=== PATIENT | male | born 1985 | race Caucasian/White ===

== ENCOUNTER 2022-11-21 14:24 | Emergency (ER) | payer SELFPAY ==
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
--- NOTE | 2022-11-21 15:04 | ER ---
Nurse's Notes [facility] Name: Jose Ortiz Age: 36 yrs Sex: Male : 1985 Arrival Date: 11/21/2022 Time: 14:26 Bed Waiting Private MD: Diagnosis: Dental root caries Presentation: 11/21 14:55 Chief complaint: Patient states: he started having pain in his upper front teeth last ap3 night, and feels like he has drainage coming from an abscess in one of his teeth. patient states he can't get into a dentist and the pain is 8/10. Coronavirus screen: At this time, the client does not indicate any symptoms associated with coronavirus-19. Ebola Screen: No symptoms or risks identified at this time. Initial Sepsis Screen: Does the patient meet any 2 criteria? No. Patient's initial sepsis screen is negative. Does the patient have a suspected source of infection? Yes: Other: teeth. Risk Assessment: Do you want to hurt yourself or someone else? Patient reports no desire to harm self or others. Onset of symptoms was November 20, 2022. 14:55 Method Of Arrival: Ambulatory ap3 14:55 Acuity: YAN 4 ap3 Triage Assessment: 14:58 General: Appears uncomfortable, Behavior is calm, cooperative, appropriate for age. ap3 Pain: Complains of pain in frenulum and gums Pain began gradually, 1 day ago. EENT: Reports pain in frenulum, gums, upper right cuspid, upper right lateral incisor, upper right central incisor and upper left central incisor. Neuro: Level of Consciousness is awake, alert, obeys commands, Oriented to person, place, time, situation, Gait is steady, Speech is normal. Cardiovascular: Patient's skin is warm and dry. Respiratory: Airway is patent Respiratory effort is even, unlabored, Respiratory pattern is regular, symmetrical. Historical: - Allergies: 14:57 No Known Allergies; ap3 - Home Meds: 14:57 None [Active]; ap3 - PMHx: 14:57 None; ap3 - Immunization history:: Client reports receiving the 2nd dose of the Covid vaccine, Flu vaccine is up to date. - Social history:: Smoking status: Patient reports the use of cigarette tobacco products, smokes one-half pack cigarettes per day. Screenin:58 [facility] ED Fall Risk Assessment (Adult) History of falling in the last 3 months, ap3 including since admission. Abuse screen: Denies threats or abuse. Nutritional screening: No deficits noted. Tuberculosis screening: No symptoms or risk factors identified. Vital Signs: 14:55 BP 128 / 89; Pulse 105; Resp 17; Temp 98.4; Pulse Ox 100% ; Weight 72.57 kg; Height 5 ap3 ft. 9 in. (175.26 cm); Pain 8/10; 14:55 Body Mass Index 23.63 (72.57 kg, 175.26 cm) ap3 ED Course: 14:26 Patient arrived in ED. 4 14:52 Tiffany Mckeon FNP is [facility] 7 14:52 Waldo Vick MD is Attending Physician. 7 14:57 Triage completed. ap3 14:59 Arm band placed on right wrist. ap3 14:59 Patient has correct armband on for positive identification. ap3 15:05 No provider procedures requiring assistance completed. Patient did not have IV access ap3 during this emergency room visit. Administered Medications: No medications were administered Medication: 15:05 VIS not applicable for this client. ap3 Outcome: 15:03 Discharge ordered by . jh7 15:05 Discharged to home ambulatory. ap3 15:05 Condition: good 15:05 Discharge instructions given to patient. ap3 15:05 Patient left the ED. ap3 Signatures: Jessica Moore 4 Mia Osullivan RN RN ap3 Tiffany Mckeon FNP FNP [facility]
[2022-11-21 15:09] VITALS: BP 128/89; TEMP 98.4; O2SAT 100
== END 2022-11-21 15:05 | disposition home or self-care (01) ==
LOC: ER 14:24
DX: K02.7 Dental root caries (principal); F17.210 Nicotine dependence, cigarettes, uncomplicated
CPT/HCPCS: 99281

== ENCOUNTER 2022-12-12 17:17 | Emergency (ER) | payer SELFPAY ==
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
--- NOTE | 2022-12-12 18:01 | ER ---
Nurse's Notes [facility] Name: Jose Ortiz Age: 37 yrs Sex: Male : 1985 Arrival Date: 12/12/2022 Time: 17:19 Bed IW3 Private MD: Diagnosis: Disorder of teeth and supporting structures, unspecified Presentation: 12/12 17:58 Chief complaint: Patient states: Pain to right lateral incisor and right cuspid tooth. jl7 Coronavirus screen: Vaccine status: Patient reports receiving the 2nd dose of the covid vaccine. At this time, the client does not indicate any symptoms associated with coronavirus-19. Ebola Screen: No symptoms or risks identified at this time. Initial Sepsis Screen: Does the patient meet any 2 criteria? No. Patient's initial sepsis screen is negative. Does the patient have a suspected source of infection? No. Patient's initial sepsis screen is negative. Risk Assessment: Do you want to hurt yourself or someone else? Patient reports no desire to harm self or others. Onset of symptoms is unknown. 17:58 Method Of Arrival: Ambulatory [facility] 17:58 Acuity: YAN 4 jl7 Triage Assessment: 17:57 General: Appears in no apparent distress. uncomfortable, Behavior is calm, cooperative, jl7 appropriate for age. Pain: Complains of pain in upper right cuspid and upper right lateral incisor Pain currently is 5 out of 10 on a pain scale. EENT: Reports pain. Historical: - Allergies: 17:59 No Known Allergies; jl7 - Home Meds: 17:59 None [Active]; jl7 - PMHx: 17:59 None; jl7 - PSHx: 17:59 None; jl7 - Immunization history:: Client reports receiving the 2nd dose of the Covid vaccine. - Social history:: Smoking status: Patient reports the use of cigarette tobacco products, smokes one-half pack cigarettes per day. Vital Signs: 17:58 BP 114 / 76; Pulse 92; Resp 17 S; Temp 98.2(TE); Pulse Ox 99% on R/A; Weight 77.11 kg; jl7 Height 5 ft. 9 in. (175.26 cm); Pain 5/10; 17:59 Pain 5/10; jl7 17:58 Body Mass Index 25.10 (77.11 kg, 175.26 cm) jl7 ED Course: 17:19 Patient arrived in ED. am2 17:20 Emre Wolff PA is PHCP. cp 17:20 Josesito Valles DO is Attending Physician. cp 17:59 Triage completed. jl7 17:59 Arm band placed on right wrist. jl7 18:00 Bassam Tejeda DDS is Referral Physician. cp 18:33 No provider procedures requiring assistance completed. Patient did not have IV access jl7 during this emergency room visit. Administered Medications: No medications were administered Outcome: 18:00 Discharge ordered by MD. cp 18:33 Discharged to home ambulatory. jl7 18:33 Condition: stable 18:33 Discharge instructions given to patient, family, Instructed on discharge instructions, follow up and referral plans. medication usage, Demonstrated understanding of instructions, follow-up care, medications, Prescriptions given X 3. 18:33 Patient left the ED. jl7 Signatures: Emre Wolff PA PA cp Leal, Jahala, RN RN jl7 Mia Sierra am2
--- NOTE | 2022-12-12 18:01 | EDPHYS ---
Physician Documentation [facility] Name: Jose Ortiz Age: 37 yrs Sex: Male : 1985 Arrival Date: 12/12/2022 Time: 17:19 Bed IW3 Private MD: ED Physician Josesito Valles HPI: 12/12 17:46 This 37 yrs old Male presents to ER via Unassigned with complaints of Toothache, Ear cp Pain. 17:46 The patient presents with pain. The problem is located in the upper jaw. Onset: The cp symptoms/episode began/occurred gradually, and became worse today. Duration: The symptoms are continuous, and are steadily getting worse. Associated signs and symptoms: Pertinent positives: right ear pain, Pertinent negatives: fever, inability to eat. Severity of symptoms: in the emergency department the symptoms are unchanged, despite home interventions. 17:46 The patient has experienced similar episodes in the past, a few times. cp Historical: - Allergies: 17:59 No Known Allergies; jl7 - Home Meds: 17:59 None [Active]; jl7 - PMHx: 17:59 None; jl7 - PSHx: 17:59 None; jl7 - Immunization history:: Client reports receiving the 2nd dose of the Covid vaccine. - Social history:: Smoking status: Patient reports the use of cigarette tobacco products, smokes one-half pack cigarettes per day. ROS: 17:50 Constitutional: Negative for body aches, chills, fever, poor PO intake. cp 17:50 Eyes: Negative for injury, pain, redness, and discharge. cp 17:50 ENT: Positive for dental pain, ear pain, Negative for drainage from ear(s), sore throat, difficulty swallowing, difficulty handling secretions. 17:50 Respiratory: Negative for cough, shortness of breath, wheezing. 17:50 Abdomen/GI: Negative for abdominal pain, vomiting, diarrhea, constipation. 17:50 Neuro: Negative for altered mental status, dizziness, headache, weakness. 17:50 All other systems are negative. Exam: 17:53 Constitutional: The patient appears in no acute distress, alert, awake, non-toxic, well cp developed, well nourished. 17:53 Head/Face: Normocephalic, atraumatic. cp 17:53 Eyes: Periorbital structures: appear normal, Conjunctiva: normal, no exudate, no injection, Sclera: no appreciated abnormality, Lids and lashes: appear normal, bilaterally. 17:53 ENT: External ear(s): are unremarkable, Ear canal(s): are normal, clear, TM's: dullness, bilaterally, Nose: is normal, Mouth: Lips: moist, Oral mucosa: moist, Gums: anterior upper gum line appears with mild erythema and swelling, small superficial abscess noted, Posterior pharynx: Airway: no evidence of obstruction, patent, swelling, is not appreciated, erythema, is not appreciated, Dental exam: dental caries, that is severe, diffusely, fractured teeth are noted, diffusely, missing teeth, diffusely, pain, that is moderate, specifically in the upper right cuspid (#6) and upper right lateral incisor (#7), Voice: is normal. 17:53 Neck: ROM/movement: is normal, is supple, without pain, no range of motions limitations, Lymph nodes: no appreciated lymphadenopathy. 17:53 Chest/axilla: Inspection: normal. 17:53 Cardiovascular: Rate: normal. 17:53 Respiratory: the patient does not display signs of respiratory distress, Respirations: normal, no use of accessory muscles, no retractions, Breath sounds: are clear throughout, no decreased breath sounds. 17:53 Neuro: Orientation: to person, place \T\ time. Mentation: is normal. Vital Signs: 17:58 BP 114 / 76; Pulse 92; Resp 17 S; Temp 98.2(TE); Pulse Ox 99% on R/A; Weight 77.11 kg; jl7 Height 5 ft. 9 in. (175.26 cm); Pain 5/10; 17:59 Pain 5/10; jl7 17:58 Body Mass Index 25.10 (77.11 kg, 175.26 cm) jl7 MDM: 17:50 Differential diagnosis: dental caries, gingivitis, dental abscess, pericoronitis. cp 18:00 Patient medically screened. cp 18:00 Data reviewed: vital signs, nurses notes. cp 18:00 Consideration of Admission/Observation Escalation of care including cp admission/observation considered. Test considered but Not performed: CT: facial bones. Care significantly affected by the following Social Determinants of Health: Poor access to healthcare and/or lack of insurance. Counseling: I had a detailed discussion with the patient and/or guardian regarding: the historical points, exam findings, and any diagnostic results supporting the discharge/admit diagnosis, the need for outpatient follow up, for definitive care, a dentist, to return to the emergency department if symptoms worsen or persist or if there are any questions or concerns that arise at home. Administered Medications: No medications were administered Disposition: 18:50 Co-signature as Attending Physician, Josesito Valles DO Nohelia was immediately available on-site ms3 in the Emergency Department for consultation in the care of the patient. Disposition Summary: 12/12/22 18:00 Discharge Ordered Location: Home cp Problem: an ongoing problem cp Symptoms: are unchanged cp Condition: Stable cp Diagnosis - Disorder of teeth and supporting structures, unspecified cp Followup: cp - With: Bassam Tejeda DDS - When: 2 - 3 days - Reason: Recheck today's complaints Discharge Instructions: - Discharge Summary Sheet cp - Dental Abscess cp - Dental Pain cp Forms: - Medication Reconciliation Form cp - Thank You Letter cp - Antibiotic Education cp - Prescription Opioid Use cp Prescriptions: - Peridex 0.12 % Mucous Membrane mouthwash - place 15 milliliter by MUCOUS MEMBRANE route 2 times per day after brushing cp teeth, swish in mouth for 30 seconds then spit out; 1 bottle; Refills: 0, Product Selection Permitted - Clindamycin HCl 150 mg Oral Capsule - take 2 capsule by ORAL route every 6 hours for 10 days; 80 capsule; Refills: 0, cp Product Selection Permitted - Diclofenac Sodium 75 mg Oral Tablet Sustained Release - take 1 tablet by ORAL route 2 times per day; 30 tablet; Refills: 0, Product cp Selection Permitted Signatures: Emre Wolff PA PA cp Leal, Jahala, RN RN jl7 Josesito Valles DO DO ms3
[2022-12-12 19:31] VITALS: BP 114/76; TEMP 98.2; O2SAT 99
== END 2022-12-12 18:33 | disposition home or self-care (01) ==
LOC: ER 17:17
DX: K08.89 Other specified disorders of teeth and supporting structures (principal)
CPT/HCPCS: 99282

== ENCOUNTER 2022-12-28 14:36 | Emergency (ER) | payer SELFPAY ==
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
[2022-12-28] MEDS ORDERED: KETOROLAC 30 MG/ML INJ ONE (15:05)
[2022-12-28] MEDS ORDERED: LIDOCAINE 1% MPF 5 ML VIAL ONE (15:05)
--- NOTE | 2022-12-28 16:00 | ER ---
Nurse's Notes [facility] Name: Jose Ortiz Age: 37 yrs Sex: Male : 1985 Arrival Date: 12/28/2022 Time: 14:36 Bed 4 Private MD: Diagnosis: Bitten by dog;Facial lacerations Presentation: 12/28 14:40 Chief complaint: Patient states: attacked by friend's dog to face, arms, and legs. aa5 Bleeding controlled. Coronavirus screen: At this time, the client does not indicate any symptoms associated with coronavirus-19. Ebola Screen: Patient denies travel to an Ebola-affected area in the 21 days before illness onset. Initial Sepsis Screen: Does the patient meet any 2 criteria? No. Patient's initial sepsis screen is negative. Does the patient have a suspected source of infection? No. Patient's initial sepsis screen is negative. Risk Assessment: Do you want to hurt yourself or someone else? Patient reports no desire to harm self or others. Onset of symptoms was December 28, 2022. 14:40 Method Of Arrival: Ambulatory aa5 14:40 Acuity: YAN 3 aa5 Historical: - Allergies: 14:41 No Known Allergies; aa5 - PMHx: 14:41 None; aa5 - PSHx: 14:41 hernia; aa5 - Immunization history:: Last tetanus immunization: unknown. - Social history:: Smoking status: Patient reports the use of cigarette tobacco products, smokes one-half pack cigarettes per day. - Family history:: not pertinent. Screenin:07 [facility] ED Fall Risk Assessment (Adult) History of falling in the last 3 months, kc6 including since admission No falls in past 3 months (0 pts) Confusion or Disorientation No (0 pts) Intoxicated or Sedated No (0 pts) Impaired Gait No (0 pts) Mobility Assist Device Used No (0 pt) Altered Elimination No (0 pt) Score/Fall Risk Level 0 - 2 = Low Risk Oriented to surroundings, Maintained a safe environment, Educated pt \T\ family on fall prevention, incl call for assistance when getting out of bed, Assessed \T\ reinforced patient's understanding of fall precautions, Hourly rounding (assess needs \T\ fall precautionary measures) done. Abuse screen: Denies threats or abuse. Denies injuries from another. Nutritional screening: No deficits noted. Tuberculosis screening: No symptoms or risk factors identified. Assessment: 15:05 General: Appears in no apparent distress. comfortable, Behavior is calm, cooperative, kc6 appropriate for age. Pain: Complains of pain in chin, right cheek Pain does not radiate. Pain began suddenly, Is continuous, Alleviated by nothing. Also complains of no other associated symptoms. Neuro: [place] Agitation-Sedation Scale (RASS): 0 - Alert and Calm Level of Consciousness is awake, alert, obeys commands, Oriented to person, place, time, situation, Appropriate for age. Cardiovascular: Capillary refill < 3 seconds. Respiratory: Airway is patent Trachea midline Respiratory effort is even, unlabored, Respiratory pattern is regular, symmetrical. GI: No signs and/or symptoms were reported involving the gastrointestinal system. : No signs and/or symptoms were reported regarding the genitourinary system. EENT: No signs and/or symptoms were reported regarding the EENT system. Derm: Skin is pink, warm \T\ dry. Derm: Skin laceration to the chin and right cheek. Musculoskeletal: No signs and/or symptoms reported regarding the musculoskeletal system. Circulation, motion, and sensation intact. Capillary refill < 3 seconds, Range of motion: intact in all extremities. 16:05 Reassessment: Patient appears in no apparent distress at this time. No changes from kc6 previously documented assessment. Patient and/or family updated on plan of care and expected duration. Pain level reassessed. Patient is alert, oriented x 3, equal unlabored respirations, skin warm/dry/pink. Vital Signs: 14:40 BP 120 / 95; Pulse 100; Resp 18 S; Temp 98.2(TE); Pulse Ox 99% on R/A; Weight 72.57 kg aa5 (R); Height 5 ft. 9 in. (175.26 cm) (R); 16:07 BP 129 / 92; Pulse 77; Resp 18 S; Pulse Ox 100% on R/A; kc6 14:40 Body Mass Index 23.63 (72.57 kg, 175.26 cm) aa5 ED Course: 14:36 Patient arrived in ED. as 14:41 Triage completed. aa5 14:41 Arm band placed on. aa5 14:45 Waldo Vick MD is Attending Physician. rt 14:54 Felicita Mcgrath, RN is Primary Nurse. kc6 14:55 Wound care: to laceration located on right cheek, chin, left hand, right ankle was vg1 cleaned with soap and water. 15:07 Allergy band placed. Bed in low position. Call light in reach. Side rails up X2. Adult kc6 w/ patient. 16:08 No provider procedures requiring assistance completed. Patient did not have IV access kc6 during this emergency room visit. Administered Medications: 15:05 Drug: Ketorolac 30 mg Route: IM; Site: right deltoid; kc6 15:34 Drug: Lidocaine (1 %) 5 ml Volume: 5 ml; Route: Infiltration; kc6 Medication: 16:08 VIS not applicable for this client. kc6 Outcome: 16:00 Discharge ordered by . rt 16:08 Discharged to home ambulatory, with significant other. kc6 16:08 Condition: stable 16:08 Discharge instructions given to patient, Instructed on discharge instructions, follow up and referral plans. medication usage, Demonstrated understanding of instructions, follow-up care, medications, Prescriptions given X 1. 16:08 Patient left the ED. kc6 Signatures: Loly Whitten Audri RN RN [id number] Geraldine Moore RN RN vg1 Felicita Mcgrath, SAVANNAH RN kc6 Waldo Vick MD MD rt Corrections: (The following items were deleted from the chart) 14:47 14:40 Chief complaint: Patient states: attacked by friend's dog to face, arms, and aa5 legs. Bleeding controlled. aa5
--- NOTE | 2022-12-28 16:00 | EDPHYS ---
Physician Documentation [facility] Name: Jose Ortiz Age: 37 yrs Sex: Male : 1985 Arrival Date: 12/28/2022 Time: 14:36 Bed 4 Private MD: ED Physician Waldo Vick HPI: 12/28 16:21 This 37 yrs old Male presents to ER via Ambulatory with complaints of Dog Bite. rt 16:21 Patient presents to the ED with a dog bite to the face, right lower extremity, left rt hand that occurred just prior to arrival. Patient states it was a neighbor's dog but does not know the dog's vaccination status. Denies other injury. Symptoms are moderate severity, no other aggravating alleviating factors. Pain is aching nature, nonradiating.. Historical: - Allergies: 14:41 No Known Allergies; aa5 - PMHx: 14:41 None; aa5 - PSHx: 14:41 hernia; aa5 - Immunization history:: Last tetanus immunization: unknown. - Social history:: Smoking status: Patient reports the use of cigarette tobacco products, smokes one-half pack cigarettes per day. - Family history:: not pertinent. ROS: 16:21 Constitutional: Negative for fever, chills, and weight loss, Eyes: Negative for injury, rt pain, redness, and discharge, ENT: Negative for injury, pain, and discharge, Cardiovascular: Negative for chest pain, palpitations, and edema, Respiratory: Negative for shortness of breath, cough, wheezing, and pleuritic chest pain, Abdomen/GI: Negative for abdominal pain, nausea, vomiting, diarrhea, and constipation, Neuro: Negative for headache, weakness, numbness, tingling, and seizure, Psych: Negative for depression, anxiety, suicide ideation, homicidal ideation, and hallucinations. 16:21 Skin: Positive for abrasion(s), laceration(s), Negative for Exam: 16:21 Constitutional: This is a well developed, well nourished patient who is awake, alert, rt and in no acute distress. Eyes: Pupils equal round and reactive to light, extra-ocular motions intact. Lids and lashes normal. Conjunctiva and sclera are non-icteric and not injected. Cornea within normal limits. Periorbital areas with no swelling, redness, or edema. ENT: Nares patent. No nasal discharge, no septal abnormalities noted. Tympanic membranes are normal and external auditory canals are clear. Oropharynx with no redness, swelling, or masses, exudates, or evidence of obstruction, uvula midline. Mucous membranes moist. Neck: Trachea midline, no thyromegaly or masses palpated, and no cervical lymphadenopathy. Supple, full range of motion without nuchal rigidity, or vertebral point tenderness. No Meningismus. Chest/axilla: Normal chest wall appearance and motion. Nontender with no deformity. No lesions are appreciated. Cardiovascular: Regular rate and rhythm with a normal S1 and S2. No gallops, murmurs, or rubs. Normal PMI, no JVD. No pulse deficits. Respiratory: Lungs have equal breath sounds bilaterally, clear to auscultation and percussion. No rales, rhonchi or wheezes noted. No increased work of breathing, no retractions or nasal flaring. Abdomen/GI: Soft, non-tender, with normal bowel sounds. No distension or tympany. No guarding or rebound. No evidence of tenderness throughout. Neuro: Awake and alert, GCS 15, oriented to person, place, time, and situation. Cranial nerves II-XII grossly intact. Motor strength 5/5 in all extremities. Sensory grossly intact. Cerebellar exam normal. Normal gait. Psych: Awake, alert, with orientation to person, place and time. Behavior, mood, and affect are within normal limits. 16:21 Head/face: 3 cm laceration to the chin through subcutaneous tissue, no bone involvement, no foreign body. There is a 4 cm laceration, 3 cm laceration, two 2 cm lacerations to the right cheek. There is an area of abrasion, just through the dermis to the cheek as well. No other external evidence of trauma. 16:21 Musculoskeletal/extremity: Small, half centimeter laceration to the palmar aspect of the left hand, full range of motion, no deformities, no appreciable tenderness, there is a small abrasion to the right distal right lower extremity. Vital Signs: 14:40 BP 120 / 95; Pulse 100; Resp 18 S; Temp 98.2(TE); Pulse Ox 99% on R/A; Weight 72.57 kg aa5 (R); Height 5 ft. 9 in. (175.26 cm) (R); 16:07 BP 129 / 92; Pulse 77; Resp 18 S; Pulse Ox 100% on R/A; kc6 14:40 Body Mass Index 23.63 (72.57 kg, 175.26 cm) aa5 Laceration: 16:25 Wound Repair of 3cm ( 1.2in ) partial thickness laceration to chin. Linear shaped.. rt Distal neuro/vascular/tendon intact. Anesthesia: Wound infiltrated with 3 mls of 1% lidocaine. Wound prep: Extensive cleansing with hibiclenz by nurse. Skin closed with 4 4-0 Prolene using Two 4-0 Vicryl deep horizontal mattress sutures were placed to prevent potential space, externally, interrupted sutures were used. Patient tolerated well. 16:25 Wound Repair of 3cm ( 1.2in ) subcutaneous laceration to right cheek. Linear shaped.. rt Distal neuro/vascular/tendon intact. Anesthesia: Wound infiltrated with 2 mls of 1% lidocaine. Wound prep: Extensive cleansing with hibiclenz by nurse. Skin closed with 4 4-0 Prolene using interrupted sutures and sterile technique. Patient tolerated well. 16:25 Wound Repair of 2cm ( 0.8in ) subcutaneous laceration to right cheek. Linear shaped.. rt Distal neuro/vascular/tendon intact. Anesthesia: Local anesthetic administered with 2 mls of 1% lidocaine. Wound prep: Extensive cleansing with hibiclenz by nurse. Skin closed with 2 4-0 Prolene using interrupted sutures and sterile technique. Patient tolerated well. 16:25 Wound Repair of 2cm ( 0.8in ) subcutaneous laceration to face. Skin/tissue flap noted.. rt Distal neuro/vascular/tendon intact. Anesthesia: Wound infiltrated with 2 mls of 1% lidocaine. Skin closed with 2 4-0 Prolene using interrupted sutures and sterile technique. Skin closed with 1-0 Prolene using Interrupted sutures utilized, devitalized tissue was debrided.. Patient tolerated well. MDM: 14:45 Patient medically screened. rt 16:25 Differential diagnosis: superficial laceration, rabies. Data reviewed: vital signs, rt nurses notes. I considered the following discharge prescriptions or medication management in the emergency department Medications were administered in the Emergency Department. See MAR. Test considered but Not performed: CT: No evidence of bony involvement, intracranial abnormalities, CT scan not indicated.. Counseling: I had a detailed discussion with the patient and/or guardian regarding: the need for outpatient follow up, to return to the emergency department if symptoms worsen or persist or if there are any questions or concerns that arise at home. ED course: Wounds were closed loosely to allow for drainage, this was explained to the patient. Will start patient on Augmentin to prevent infection. Patient counseled extensively on signs of infection. The other wounds do not require primary closure, will allow to heal by secondary intention. Patient is in agreement with this rationale.. ED course: Patient given [facility] information for rabies prophylaxis.. 12/28 14:52 Order name: Wound Care; Complete Time: 15:05 rt 12/28 14:52 Order name: Gloves, Sterile; Complete Time: 15:04 rt 12/28 14:52 Order name: Prolene, Sutures: 4-0, 2 packs; Complete Time: 15:04 rt 12/28 14:52 Order name: Setup Suture Tray; Complete Time: 15:04 rt Administered Medications: 15:05 Drug: Ketorolac 30 mg Route: IM; Site: right deltoid; kc6 15:34 Drug: Lidocaine (1 %) 5 ml Volume: 5 ml; Route: Infiltration; kc6 Disposition Summary: 12/28/22 16:00 Discharge Ordered Location: Home rt Problem: new rt Symptoms: have improved rt Condition: Stable rt Diagnosis - Bitten by dog rt - Facial lacerations rt Followup: rt - With: Private Physician - When: 1 week - Reason: Discharge Instructions: - Discharge Summary Sheet rt - Laceration Care, Adult rt - Facial Laceration rt - Animal Bite, Adult rt Forms: - Medication Reconciliation Form rt - Thank You Letter rt - Antibiotic Education rt - Prescription Opioid Use rt Prescriptions: - Augmentin 875-125 mg Oral Tablet - take 1 tablet by ORAL route every 12 hours for 10 days; 20 tablet; Refills: 0, rt Product Selection Permitted Signatures: Sonia Finch RN RN aa5 Felicita Mcgrath RN RN kc6 Waldo Vick MD MD rt
[2022-12-28 16:59] VITALS: TEMP 98.2
[2022-12-28 17:00] VITALS: BP 129/92; O2SAT 100
== END 2022-12-28 16:08 | disposition home or self-care (01) ==
LOC: ER 14:36
PROC: 0HQ1XZZ Repair Face Skin, External Approach (ICD-10-PCS; principal; 2022-12-28)
DX: S01.81XA Laceration without foreign body of other part of head, initial encounter (principal); W54.0XXA Bitten by dog, initial encounter; F17.210 Nicotine dependence, cigarettes, uncomplicated
CPT/HCPCS: 96372; 99283; J2001